=== PATIENT | female | born 1930 | race Hispanic/Latino ===

== ENCOUNTER 2017-06-06 06:18 | Day surgery (SDC) | payer MEDICARE, BC ==
[2017-06-03 12:12] VITALS: BMI 27.4
[2017-06-06] MEDS ORDERED: Lidocaine 2% Inj (20ml) ONE (06:52)
[2017-06-06] MEDS ORDERED: Phenylephrine 10 mg/ml Inj ONE (06:52)
[2017-06-06] MEDS ORDERED: Iodixanol 320 MG/ML 200 ML BOTTLE IV ONE (06:53)
[2017-06-06] MEDS ORDERED: Nitroglycerin 50mg in D5W 0 MG/0 ML BOTTLE IV ONE (06:53)
[2017-06-06] MEDS ORDERED: Iohexol 350mgl/ml 50 ML ONE (06:53)
[2017-06-06] MEDS ORDERED: Iodixanol 320 MG/ML 100 ML BOTTLE IV ONE (06:53)
[2017-06-06] MEDS ORDERED: Midazolam 2 MG/2 ML VIAL ONE ×2 (07:04→08:03)
[2017-06-06 07:22] LABS: BASO # 0.02 K/mm3 (0.0-2.0); BASO % 0.3 % (0.0-3.0); EOS # 0.3 (0.0-0.7); EOS % 4.5 % (1.5-5.0); GRAN # 4.86 (1.4-6.5); HEMOGLOBIN 12.7 g/dL (12.0-16.0); LYMPH # 1.6 (1.2-3.4); LYMPH % 21.3 % (22.0-35.0); MEAN CELL VOLUME 86.5 fl (80.0-105.0); MEAN CORPUSCULAR HEMOGLOBIN 28.7 pg (25.0-35.0); MEAN CORPUSCULAR HGB CONC 33.2 g/dl (31.0-37.0); MEAN PLATELET VOLUME 10.2 fl (7.0-11.0); MONO # 0.5 (0.1-0.6); MONO % 6.9 % (1.0-6.0); PLATELET COUNT 166 10^3/uL (120.0-450.0); RBC 4.43 10^6/uL (3.5-6.1); RED CELL DISTRIBUTION WIDTH 13.1 % (11.5-14.5); WHITE BLOOD COUNT 7.3 10^3/ul (4.5-11.0)
[2017-06-06 07:33] LABS: INR 0.95 (0.93-1.08); PARTIAL THROMBOPLASTIN TIME 25.3 Seconds (23.7-30.8); PROTHROMBIN TIME 10.3 Seconds (9.9-11.8)
[2017-06-06 07:35] LABS: BLOOD UREA NITROGEN 33 mg/dL (7-21); CALCIUM 10.5 mg/dL (8.4-10.5); GFR AFRICAN-AMERICAN > 60; GFR NON-AFRICAN AMERICAN 52
[2017-06-06] MEDS ORDERED: Sodium Chloride 0.9% 1,000 ML IV SCH (09:00)
[2017-06-06 09:17] VITALS: TEMP 98
[2017-06-06 10:31] VITALS: RESP 18
[2017-06-06 13:48] VITALS: O2SAT 96
[2017-06-06 13:49] VITALS: BP 148/62; PULSE 84
--- NOTE | 2017-06-06 15:58 | CARD ---
APPROVED REPORT EKG Measurement Heart [id number] <Conclusion> Normal sinus rhythm ST & T wave abnormality, consider lateral ischemia Abnormal ECG
--- NOTE | 2017-06-06 18:25 | CARDCATH ---
PROCEDURE DATE: 06/06/2017 HISTORY: The patient is an 87-year-old woman who presents for preop clearance. Her stress test revealed new lesions on the stress test. Because of this, cardiac catheterization was recommended. The patient is status post multivessel PTCA and stent in the past. In addition, the patient is status post aortic valve replacement. PROCEDURE: Left heart catheterization with coronary arteriography and supra-aortic valvular injection. The right femoral artery was cannulated with a 6-Stateless sheath. There were no complications. The findings on catheterization revealed an aortic root that revealed no aortic insufficiency. 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 The coronary anatomy was right dominant circulation. The RCA revealed diffuse intimal irregularities without critical lesions. There is a 50% stenosis in the PDA. Her coronary anatomy revealed a heavily calcified and diffusely atherosclerotic artery. The left main artery is unremarkable with mild disease in the distal portion. The LAD revealed two patent stents, one in the proximal and one in the mid with a patent stent in the proximal diagonal vessel. There is a 40-50% stenosis in the distal LAD. Diagonal vessels revealed a patent stent. The circumflex artery revealed diffuse atherosclerosis with a patent stent in the proximal portion with diffuse intimal irregularities. Angio-Seal was used to close the femoral artery site. The patient tolerated the procedure well. SUMMARY: In summary, the procedure revealed intimal irregularities throughout its course with patent stent in the proximal LAD, mid LAD, proximal diagonal and circumflex artery with a 50% stenosis in the PDA. There is no aortic insufficiency from the prosthetic aortic valve. Given these findings, the patient's coronary arteries are unchanged from her previous. Her cardiac function is stable. There are no cardiac contraindications to her planned surgery. Henry Downing MD
== END 2017-06-06 14:50 | disposition home or self-care (01) ==
LOC: CATH 06:18
PROVIDERS: ATTEND Internal Medicine Cardiovascular Disease
DX: I25.10 Atherosclerotic heart disease of native coronary artery without angina pectoris (principal); Z95.2 Presence of prosthetic heart valve; Z95.5 Presence of coronary angioplasty implant and graft
CPT/HCPCS: 36415; 80048; 85025; 85610; 85730; 86850; 86900; 93005; 93454; 93567; 99152; C1760; C1769; C2629; J0360; J1644; J2250; J3010; J7040 ×2; Q9967